=== PATIENT | male | born 1975 | race Caucasian/White ===

== ENCOUNTER 2016-11-13 23:57 | Observation (INO) | payer MEDICAID ==
[~2016-11-13] VITALS: Ht 175.3 cm; Wt 85.0 kg
[2016-11-14 00:46] LABS: BLOOD UREA NITROGEN 11 mg/dL (7-18)
[2016-11-14 00:48] LABS: ACETAMINOPHEN < 2 mcg/mL (10-30); ASPARTATE AMINO TRANSFERASE 19 U/L (15-37)
[2016-11-14 02:07] LABS: DAU SCREEN DISCLAIMER
[2016-11-14] MEDS ORDERED: OLANZAPINE 10 MG TABLET PO PRN (04:00)
[2016-11-14] MEDS: ENOXAPARIN 40 MG/0.4 ML SQ SCH (04:00)
[2016-11-14] MEDS ORDERED: ACETAMINOPHEN 325 MG TABLET PO PRN (04:00)
[2016-11-14 04:56] VITALS: BP 122/83
[2016-11-14 07:47] VITALS: BP 112/71
[2016-11-14] MEDS ORDERED: POTASSIUM CHLORIDE 20 MEQ TAB.ER.PRT PO ONE (11:00)
[2016-11-14 21:45] VITALS: BP 106/73
[2016-11-14] MEDS: OLANZAPINE 5 MG TABLET PO PRN ×2 (22:30→22:36)
[2016-11-15] MEDS: ENOXAPARIN 40 MG/0.4 ML SQ SCH (04:00)
[2016-11-15 08:02] VITALS: BP 114/77
[2016-11-15] MEDS: OLANZAPINE 5 MG TABLET PO PRN (12:29)
[2016-11-15 19:43] VITALS: BP 102/61
[2016-11-16] MEDS: ENOXAPARIN 40 MG/0.4 ML SQ SCH ×2 (04:00→12:00)
[2016-11-16 08:00] VITALS: BP 116/73
[2016-11-16] MEDS: OLANZAPINE 5 MG TABLET PO PRN (08:31)
[2016-11-16 20:09] VITALS: BP 133/84
[2016-11-16] MEDS: OLANZAPINE 10 MG TABLET PO SCH (20:58)
[2016-11-17 08:34] VITALS: BP 125/85
[2016-11-17] MEDS: OLANZAPINE 10 MG TABLET PO SCH ×2 (09:00→09:48)
[2016-11-17] MEDS ORDERED: LORazepam 1MG TABLET PO PRN (11:00)
[2016-11-17] MEDS ORDERED: OLANZAPINE 10 MG TABLET PO PRN (11:00)
[2016-11-17] MEDS: ENOXAPARIN 40 MG/0.4 ML SQ SCH (12:00)
== END 2016-11-17 23:40 ==
LOC: EDSEX 23:57 → ED 23:59 → INTOOBSV 11-14 03:12 → EDIP 11-14 03:12 → SUATTDRO 11-14 03:30 → 3E 11-14 04:43
PROVIDERS: ADMIT Internal Medicine; ATTEND Internal Medicine
DX: R45.851 Suicidal ideations (principal); F31.9 Bipolar disorder, unspecified; F20.0 Paranoid schizophrenia; E87.6 Hypokalemia
CPT/HCPCS: 36415; 80053; 80307; 80329; 81003; 84132; 85025; 99285; G0378; G0480